=== PATIENT | male | born 1960 | race Native Hawaiian/Other Pacific Islander ===

== ENCOUNTER 2019-08-08 09:34 | Outpatient (CLI) | payer BC | END 2019-08-08 21:47 | disposition home or self-care (01) | LOC: CT 09:34 | DX: N20.0 Calculus of kidney (principal); M10.9 Gout, unspecified; N19 Unspecified kidney failure ==

== ENCOUNTER 2019-10-06 13:42 | Outpatient (CLI) | payer BC | END 2019-10-06 19:49 | disposition home or self-care (01) | LOC: CT 13:42 | PROVIDERS: ATTEND Nurse Practitioner Family | DX: N20.2 Calculus of kidney with calculus of ureter (principal); N19 Unspecified kidney failure ==

== ENCOUNTER 2020-01-01 10:58 | Outpatient (CLI) | payer BC | END 2020-01-01 22:31 | disposition home or self-care (01) | LOC: US 10:58 | DX: H57.9 Unspecified disorder of eye and adnexa (principal); I63.9 Cerebral infarction, unspecified ==

== ENCOUNTER 2020-03-11 14:33 | Outpatient (CLI) | payer BC | END 2020-03-11 22:04 | disposition home or self-care (01) | LOC: RAD 14:33 | PROVIDERS: ATTEND Nurse Practitioner Family | DX: R05 Cough (principal); J40 Bronchitis, not specified as acute or chronic ==